=== PATIENT | female | born 1995 | race Two or more races ===

== ENCOUNTER 2024-02-01 14:33 | Outpatient (REF) | payer OTHER, MEDICAID, SELFPAY | END 2024-02-01 14:34 | disposition home or self-care (01) | LOC: HO.LAB 14:33 | PROVIDERS: PCP Internal Medicine; Visit Provider Otolaryngology | DX: J30.89 Other allergic rhinitis (principal) | CPT/HCPCS: 36415; 82785; 86003 ==